=== PATIENT | female | born 1965 | race Caucasian/White ===

== ENCOUNTER 2017-01-18 10:17 | Emergency (ER) | payer OTHER ==
[~2017-01-18] VITALS: Ht 175.3 cm; Wt 99.7 kg
[2017-01-18] MEDS ORDERED: DILANTIN100 MG PO (12:20)
[2017-01-18] MEDS ORDERED: ESCITALOPRAM OXA5 MG PO (12:21)
[2017-01-18] MEDS ORDERED: TELMISARTAN40 MG PO (12:21)
[2017-01-18] MEDS ORDERED: SIMVASTATIN20 MG PO (12:21)
[2017-01-18 12:35] LABS: MCH 30.3 PG (29.0-34.0); MCHC 32.7 G/DL (30.0-36.0); MCV 92.4 FL (83-99); MEAN PLAT.VOLUME 10.1 uM^3 (9.5-12.4); PLATELET COUNT 399 K/uL (156-360); RBC DIS.WIDTH-CV 12.2 % (11.8-14.6); RED BLOOD COUNT 4.76 M/uL (3.80-5.20); WHITE BLOOD COUNT 6.4 K/uL (4.1-10.2)
[2017-01-18 12:50] LABS: CHLORIDE 102 mEq/L (99-109); POTASSIUM 4.4 mEq/L (3.7-5.4); SODIUM 139 mEq/L (136-147)
[2017-01-18 12:51] LABS: GLUCOSE 99 mg/dL (70-99)
[2017-01-18 12:53] LABS: ANION GAP 11 MEQ/L (2-14)
[2017-01-18 12:55] LABS: GFR ESTIMATE (CALCULATED) > 59 mL/min/
[2017-01-18 12:56] LABS: UREA NITROGEN (BUN) 7 mg/dL (9-23)
[2017-01-18 13:00] LABS: TROP-I INTERPRETATION NEGATIVE; TROPONIN-I < 0.01 ng/mL (0.0-0.30)
[2017-01-18 13:30] LABS: TOTAL BILIRUBIN 0.2 mg/dL (0.0-1.0)
[2017-01-18 13:31] LABS: ALKALINE PHOSPHATASE 134 IU/L (3-129)
[2017-01-18 13:34] LABS: DIRECT BILIRUBIN 0.1 mg/dL (0.0-0.3)
[2017-01-18 13:47] LABS: D-DIMER ELISA 2.11 mg/L FEU (< 0.57)
[2017-01-18 13:55] LABS: QUANTITATIVE HCG < 4.0 MIU/ML
[2017-01-18 15:49] LABS: TROP-I INTERPRETATION NEGATIVE; TROPONIN-I < 0.01 ng/mL (0.0-0.30)
[2017-01-18] MEDS ORDERED: NAPROSYN500 MG PO (16:10)
[2017-01-18 16:24] VITALS: BP 144/104
== END 2017-01-18 16:25 | disposition home or self-care (01) ==
LOC: EME 10:17
PROVIDERS: Physician Assistant
DX: R07.9 Chest pain, unspecified (principal); R53.83 Other fatigue; E78.5 Hyperlipidemia, unspecified; I10 Essential (primary) hypertension; Z88.0 Allergy status to penicillin; Z88.1 Allergy status to other antibiotic agents; Z91.041 Radiographic dye allergy status; Z88.8 Allergy status to other drugs, medicaments and biological substances; Z87.891 Personal history of nicotine dependence; Z80.8 Family history of malignant neoplasm of other organs or systems
CPT/HCPCS: 71020; 71275; 80048; 80076; 80185; 84443; 84484; 84702; 85027; 85379; 93005; 99281; 99285; J1200; J2930; J7030